=== PATIENT | female | born 1960 | race Caucasian/White ===

== ENCOUNTER 2022-01-28 05:57 | Emergency (ER) | payer MEDICARE, MEDICAID ==
[2022-01-28] MEDS ORDERED: Sodium Chloride 0.9% 10 ML Syringe FLUSH PRN (07:05)
[2022-01-28] MEDS ORDERED: Ondansetron 4 MG/2 ML SDV IVPUSH ONE (07:05)
[2022-01-28] MEDS ORDERED: Sodium Chloride 0.9% 1,000 ML IV SCH (07:15)
== END 2022-01-28 08:51 | disposition home or self-care (01) ==
LOC: JD.ED 05:57
DX: R10.11 Right upper quadrant pain (principal); R10.12 Left upper quadrant pain; Z72.0 Tobacco use
CPT/HCPCS: 36415; 80053; 82977; 83690; 85025; 96374; 99284; J2405; J7030

== ENCOUNTER → 2022-01-31 | Day surgery (SDC) | payer MEDICARE, MEDICAID ==
[2022-01-31] MEDS: Polymyxin B/Trimethoprim 10 ML Bottle EYELF SCH ×4 (15:05→16:57)
[2022-01-31] MEDS: Brimonidine 0.2% Ophth Soln 5 ML Bottle EYELF SCH ×4 (15:11→16:57)
[2022-01-31] MEDS: Phenylephrine 2.5% Ophth Soln 2 ML Bot EYELF SCH ×6 (15:15→16:41)
[2022-01-31] MEDS: Tropicamide 1% Ophth Soln 15 ML Bottle EYELF SCH ×4 (15:21→16:09)
[2022-01-31] MEDS: Tetracaine HCl/PF 0.5% 4 ML Bottle EYEBOTH SCH ×5 (16:20→16:47)
[2022-01-31] MEDS: Lidocaine 1% PF 2 ML SDV INJECT SCH ×2 (16:26→16:46)
[2022-01-31] MEDS: Cefuroxime 10 MG/ML SYRINGE EYELF SCH ×2 (16:26→16:56)
[2022-01-31] MEDS: Pilocarpine 4% Ophth Soln 15 ML Bot EYELF SCH ×2 (16:27→16:57)
== END | disposition home or self-care (01) ==
LOC: JD.SDS 14:29
PROVIDERS: ATTEND Ophthalmology
DX: H25.813 Combined forms of age-related cataract, bilateral (principal); H16.223 Keratoconjunctivitis sicca, not specified as Sjogren's, bilateral; H02.831 Dermatochalasis of right upper eyelid; H02.834 Dermatochalasis of left upper eyelid; F17.200 Nicotine dependence, unspecified, uncomplicated; E66.9 Obesity, unspecified; Z98.890 Other specified postprocedural states; F32.A Depression, unspecified; Z79.899 Other long term (current) drug therapy
CPT/HCPCS: 66984; J0697; V2632

== ENCOUNTER 2022-02-28 14:11 | Day surgery (SDC) | payer MEDICARE, MEDICAID ==
[~2022-02-28 14:11] MED LIST: Cefuroxime 10 MG/ML SYRINGE EYERT SCH; Lidocaine 1% PF 2 ML SDV INJECT SCH; Pilocarpine 4% Ophth Soln 15 ML Bot EYERT SCH
[2022-02-28] MEDS: Polymyxin B/Trimethoprim 10 ML Bottle EYERT SCH ×3 (14:31→16:23)
[2022-02-28] MEDS: Brimonidine 0.2% Ophth Soln 5 ML Bottle EYERT SCH ×3 (14:36→16:23)
[2022-02-28] MEDS: Phenylephrine 2.5% Ophth Soln 2 ML Bot EYERT SCH ×5 (14:41→15:59)
[2022-02-28] MEDS: Tropicamide 1% Ophth Soln 15 ML Bottle EYERT SCH ×4 (14:46→15:39)
[2022-02-28] MEDS: Tetracaine HCl/PF 0.5% 4 ML Bottle EYEBOTH SCH ×4 (15:44→16:15)
== END 2022-02-28 16:30 | disposition home or self-care (01) ==
LOC: JD.SDS 14:11
PROVIDERS: ATTEND Ophthalmology
DX: H25.811 Combined forms of age-related cataract, right eye (principal); H16.223 Keratoconjunctivitis sicca, not specified as Sjogren's, bilateral; H52.31 Anisometropia; F32.A Depression, unspecified; F17.200 Nicotine dependence, unspecified, uncomplicated; Z79.899 Other long term (current) drug therapy; Z96.1 Presence of intraocular lens
CPT/HCPCS: 66984; J0697; V2632

== ENCOUNTER 2023-05-04 21:12 | Emergency (ER) | payer MEDICARE, MEDICAID ==
[2023-05-04] MEDS ORDERED: Sodium Chloride 0.9% 1,000 ML IV ONE (22:50)
[2023-05-04] MEDS ORDERED: Albuterol/Ipratropium 3.0-0.5 MG/3 ML Neb Soln NEB ONE (22:50)
[2023-05-04] MEDS ORDERED: methylPREDNISolone Sodium Succinate 125 MG/2 ML SDV IVPUSH ONE (22:50)
[2023-05-04 23:18] LABS: BASOPHILS ABSOLUTE AUTO 0.03 K/mm3 (0.01-0.08); BASOPHILS PERCENT AUTO 0.2 % (0.1-1.2); EOSINOPHILS ABSOLUTE AUTO 0.05 K/mm3 (0.04-0.36); EOSINOPHILS PERCENT AUTO 0.4 (0.7-5.8); HEMATOCRIT 37.2 % (34.1-44.9); HEMOGLOBIN 12.4 gm/dl (11.2-15.7); IMMATURE GRAN ABSOLUTE AUTO 0.02 K/mm3 (0.00-0.10); IMMATURE GRAN PERCENT AUTO 0.2 % (<=1.0); LYMPHOCYTES ABSOLUTE AUTO 2.31 K/mm3 (1.18-3.74); LYMPHOCYTES PERCENT AUTO 18.8 % (19.3-51.7); MEAN CORPUSCULAR HEMOGLOBIN 31.4 pg (25.6-32.2); MEAN CORPUSCULAR HGB CONC 33.3 g/dl (32.2-35.5); MEAN CORPUSCULAR VOLUME 94.2 fl (79.4-94.8); MEAN PLATELET VOLUME 8.9 fl (9.4-12.3); MONOCYTES ABSOLUTE AUTO 1.45 K/mm3 (0.24-0.36); MONOCYTES PERCENT AUTO 11.8 % (4.7-12.5); NEUTROPHILS ABSOLUTE AUTO 8.43 K/mm3 (1.56-6.13); NEUTROPHILS PERCENT AUTO 68.6 % (34.0-71.1); PLATELET COUNT,PLT 265 K/mm3 (182-369); RED BLOOD CELL COUNT 3.95 M/mm3 (3.98-5.22); WHITE BLOOD CELL COUNT,WBC 12.29 K/mm3 (3.98-10.04)
[2023-05-04 23:39] LABS: A/G RATIO 0.7 (1-2); ANION GAP 13.1 (5-15); BILIRUBIN TOTAL 0.4 mg/dL (0.2-1.0); CALCIUM 9.4 mg/dL (8.5-10.1); EST CRCL DRUG DOSING (CG) 51.66 mL/min; POTASSIUM,K 4.1 mEq/L (3.5-5.1); PROTEIN TOTAL,TP 7.2 g/dl (6.4-8.2)
[2023-05-05 00:02] LABS: C-REACTIVE PROTEIN 23.9 mg/dL (<1.0)
[2023-05-05 01:11] LABS: CORONAVIRUS COVID-19 NAA NEGATIVE (NEGATIVE); INFLUENZA A NAA NEGATIVE (NEGATIVE); RESPIRATORY SYNCYTIAL VIR NAA NEGATIVE (NEGATIVE)
== END 2023-05-05 02:15 | disposition home or self-care (01) ==
LOC: JD.ED 21:12
DX: R05.3 Chronic cough (principal); M54.9 Dorsalgia, unspecified; R79.82 Elevated C-reactive protein (CRP); E66.9 Obesity, unspecified; Z68.25 Body mass index [BMI] 25.0-25.9, adult
CPT/HCPCS: 0241U; 36415; 71045; 80053; 85025; 86140; 94640; 96374; 99284; J2930; J7030; J7620-GY

== ENCOUNTER 2024-02-27 15:11 | Emergency (ER) | payer MEDICAID, MEDICARE ==
[2024-02-27 16:57] LABS: HEMATOCRIT 39.5 % (37.0-47.0); HEMOGLOBIN 13.5 gm/dl (12.0-16.0); MEAN CORPUSCULAR HGB CONC 34.2 g/dl (32.0-36.0); MEAN CORPUSCULAR VOLUME 93.6 fl (83.0-99.0); MEAN PLATELET VOLUME 9.2 fl (9.4-12.3); PLATELET COUNT,PLT 293 K/mm3 (150-400); RED BLOOD CELL COUNT 4.22 M/mm3 (4.10-5.30)
[2024-02-27] MEDS ORDERED: Nicotine 21 MG/24 Hr Patch TRDERM PRN (16:59)
[2024-02-27 17:13] LABS: A/G RATIO 1.2 (1-2); ALBUMIN 3.8 g/dl (3.4-5.0); ANION GAP 15.2 (5-15); BILIRUBIN TOTAL 0.3 mg/dL (0.2-1.0); CALCIUM 9.2 mg/dL (8.5-10.1); EST CRCL DRUG DOSING (CG) 51.02 mL/min; POTASSIUM,K 3.2 mEq/L (3.5-5.1); PROTEIN TOTAL,TP 7.1 g/dl (6.4-8.2); TSH 1.598 uIU/mL (0.358-3.74)
[2024-02-27 17:16] LABS: BAND PERCENT MAN 1 % (0-10); BASOPHILS PERCENT MAN 0 (0.1-1.2); EOSINOPHILS PERCENT MAN 2 % (0.7-5.8); LYMPHOCYTES % ATYPICAL MANUAL 2 %; LYMPHOCYTES PERCENT MAN 40 % (20-40); MONOCYTES PERCENT MAN 4 % (2-10); PLATELET COUNT ESTIMATE ADEQUATE
[2024-02-27 17:16] LABS: BARBITURATE SCREEN,URINE NEGATIVE (CUTOFF=200); BENZODIAZEPINES SCREEN,URINE NEGATIVE (CUTOFF=150); BUPRENORPHINE SCREEN,URINE NEGATIVE (CUTOFF=10); METHADONE SCREEN, URINE NEGATIVE (CUTOFF=200); METHAMPHETAMINES SCREEN, URINE NEGATIVE (CUTOFF=500); OXYCODONE SCREEN,URINE NEGATIVE (CUT0FF=100); THC SCREEN,URINE 20 NG/ML NEGATIVE (CUTOFF=50)
[2024-02-27 17:21] LABS: AMPHETAMINES SCREEN, URINE NEGATIVE (CUTOFF=500)
[2024-02-27] MEDS: lamoTRIgine 100 MG Tab PO ONE ×2 (20:29)
[2024-02-27] MEDS: levETIRAcetam 500 MG Tab PO ONE (20:29)
[2024-02-27] MEDS: Famotidine 20 MG Tab PO ONE (20:30)
[2024-02-27] MEDS: levETIRAcetam Soln 500 MG/5 ML Cup PO ONE (20:30)
[2024-02-27] MEDS ORDERED: lamoTRIgine 100 MG Tab PO SCH ×2 (21:00)
== END 2024-02-27 20:30 ==
LOC: JD.ED 15:11
DX: F32.A Depression, unspecified (principal); K21.9 Gastro-esophageal reflux disease without esophagitis; F17.210 Nicotine dependence, cigarettes, uncomplicated; E66.9 Obesity, unspecified; Z68.26 Body mass index [BMI] 26.0-26.9, adult; Z79.899 Other long term (current) drug therapy
CPT/HCPCS: 36415; 80053; 80143; 80179; 80306; 80307; 84443; 85007; 85027; 87635; 93005; 99285; A9270; 93010; U0002